=== PATIENT | female | born 1970 | race Caucasian/White ===

== ENCOUNTER 2020-08-12 10:21 | Day surgery (SDC) | payer SELFPAY ==
[2020-08-07 14:28] VITALS: BMI 24.1
[2020-08-12] MEDS ORDERED: fentaNYL CITRATE 250 MCG/5 ML VIAL ONE (11:23)
[2020-08-12] MEDS ORDERED: MIDAZOLAM HCL 2 MG/2 ML SINGLE DOSE VIAL ONE ×2 (11:24)
[2020-08-12] MEDS ORDERED: ROCURONIUM BROMIDE 50 MG/5 ML SYRINGE ONE (11:24)
[2020-08-12] MEDS ORDERED: PROPOFOL 20 ML ONE (11:24)
[2020-08-12] MEDS ORDERED: ceFAZolin SODIUM 1 GM VIAL ONE (12:22)
[2020-08-12] MEDS ORDERED: SCOPOLAMINE HYDROBROMIDE 1 PATCH PATCH.TD72 ONE (12:38)
[2020-08-12] MEDS ORDERED: SEVOFLURANE 250 ML BTL ONE (15:49)
[2020-08-12] MEDS ORDERED: ONDANSETRON 4 MG/2 ML VIAL ONE ×2 (16:46→18:12)
[2020-08-12] MEDS ORDERED: BUPIVACAINE HCL/PF 0.25% (2.5MG/ML) 10 ML VIAL ONE ×2 (17:05→17:13)
[2020-08-12] MEDS ORDERED: ONDANSETRON 4 MG/2 ML VIAL IVPUSH PRN (17:46)
[2020-08-12] MEDS ORDERED: oxyCODONE HCL 5 MG TABLET PO PRN (17:46)
[2020-08-12] MEDS ORDERED: PROMETHAZINE HCL 25 MG/1 ML VIAL IVPUSH PRN (17:46)
[2020-08-12] MEDS ORDERED: LACTATED RINGERS SOLUTION 1,000 ML IV SCH (18:00)
[2020-08-12 19:22] VITALS: TEMP 98.2
[2020-08-12] MEDS ORDERED: oxyCODONE HCL 5 MG TABLET ONE (19:34)
[2020-08-12 20:05] VITALS: BP 118/65; PULSE 90
== END 2020-08-12 20:13 | disposition home or self-care (01) ==
LOC: FASU 10:21
PROVIDERS: ATTEND Surgery
CPT/HCPCS: 84703; 88305-TC; 94760